=== PATIENT | female | born 1940 | race Caucasian/White ===

== ENCOUNTER 2017-11-04 17:08 | Emergency (ER) | payer OTHER ==
[~2017-11-04] VITALS: Ht 154.9 cm; Wt 50.8 kg
[~2017-11-04 17:08] MED LIST: MIRALAX510 GM PO; NABUMETONE500 MG PO; PERCOCET 5/3251 TAB PO; SIMETHICONE PO
== END 2017-11-04 19:24 | disposition home or self-care (01) ==
LOC: ER 17:08
DX: M79.1 Myalgia (principal); R10.31 Right lower quadrant pain; M79.604 Pain in right leg

== ENCOUNTER 2018-06-22 16:06 | Emergency (ER) | payer OTHER ==
[~2018-06-22] VITALS: Ht 154.9 cm; Wt 51.7 kg
== END 2018-06-22 18:35 | disposition home or self-care (01) ==
LOC: ER 16:06
DX: M54.2 Cervicalgia (principal); M62.838 Other muscle spasm

== ENCOUNTER 2019-12-07 10:51 | Outpatient (CLI) | payer OTHER | END 2019-12-07 10:56 | disposition home or self-care (01) | LOC: SONOGRAMA 10:51 | PROVIDERS: ATTEND Pathology Anatomic Pathology | DX: E04.2 Nontoxic multinodular goiter (principal) ==